=== PATIENT | female | born 1960 | race Caucasian/White ===

== ENCOUNTER 2016-07-05 20:33 | Emergency (ER) | payer OTHER, BC ==
[~2016-07-05] VITALS: Ht 162.6 cm; Wt 90.0 kg
[2016-07-05 20:36] VITALS: BP 178/89; PULSE 100; RESP 14; TEMP 98.1; O2SAT 99
[2016-07-05 20:39] VITALS: BP 178/89; PULSE 100; RESP 15; TEMP 98.1; O2SAT 98
[2016-07-05] MEDS ORDERED: DIPHTH/TETANUS/ACEL PERTUSSIS (BOOSTER) 0.5 ML VIAL/PFS IM ONE (20:45)
[2016-07-05] MEDS ORDERED: LEVO25TA4 PO (20:46)
[2016-07-05] MEDS ORDERED: OXYC-392 PO (20:46)
[2016-07-05] MEDS ORDERED: BUPR100CR PO (20:46)
[2016-07-05] MEDS ORDERED: ESCI20TA PO (20:46)
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
[2016-07-05] MEDS ORDERED: LORazepam 2 MG/ML VIAL IV PUSH ONE (21:15)
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
[2016-07-05] MEDS ORDERED: LIDOCAINE 1%/EPINEPHrine 1:100,000 SOLN 20 ML VIAL INFIL ONE (21:30)
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
[2016-07-05] MEDS ORDERED: BACITRACIN OINT 0.9 GM PKT TOP ONE (22:15)
== END 2016-07-05 22:38 | disposition home or self-care (01) ==
LOC: NEPA 20:33
DX: S51.012A Laceration without foreign body of left elbow, initial encounter (principal); S53.402A Unspecified sprain of left elbow, initial encounter; S83.92XA Sprain of unspecified site of left knee, initial encounter; M25.642 Stiffness of left hand, not elsewhere classified; E07.9 Disorder of thyroid, unspecified; Z23 Encounter for immunization; V29.88XA Motorcycle rider (driver) (passenger) injured in other specified transport accidents, initial encounter; Y92.410 Unspecified street and highway as the place of occurrence of the external cause
CPT/HCPCS: 12031; 70450; 71010; 72125; 72170; 73080; 73090; 73110; 73130; 73564; 90471; 90715